=== PATIENT | female | born 1985 | race Caucasian/White ===

== ENCOUNTER 2017-11-24 09:37 | Emergency (ER) | payer MEDICAID ==
[~2017-11-24] VITALS: Ht 160 cm; Wt 124.7 kg
[~2017-11-24 09:37] MED LIST: LISI10TA6; TOPI25TA32
[2017-11-24 09:42] VITALS: BP 196/78
[2017-11-24] MEDS ORDERED: TETANUS-DIPTH-ACEL PERTUSSIS 0.5ML SYRG IM ONE (10:45)
== END 2017-11-24 10:53 | disposition home or self-care (01) ==
LOC: ER 09:37
DX: S91.332A Puncture wound without foreign body, left foot, initial encounter (principal); W22.8XXA Striking against or struck by other objects, initial encounter; Y93.89 Activity, other specified; Y99.8 Other external cause status; Y92.89 Other specified places as the place of occurrence of the external cause
CPT/HCPCS: 90471; 90715

== ENCOUNTER 2020-10-20 15:31 | Emergency (ER) | payer MEDICAID ==
[~2020-10-20] VITALS: Ht 162.6 cm; Wt 117.9 kg
[~2020-10-20 15:31] MED LIST changes: +LISI-716; -LISI10TA6; -TOPI25TA32; +TOPI25TA43
[2020-10-20 15:32] VITALS: BP 115/81
== END 2020-10-20 17:29 | disposition left against medical advice (07) ==
LOC: ER 15:31
DX: S80.862A Insect bite (nonvenomous), left lower leg, initial encounter (principal); Z53.21 Procedure and treatment not carried out due to patient leaving prior to being seen by health care provider; W57.XXXA Bitten or stung by nonvenomous insect and other nonvenomous arthropods, initial encounter; Y93.89 Activity, other specified; Y92.89 Other specified places as the place of occurrence of the external cause; Y99.8 Other external cause status

== ENCOUNTER 2024-10-21 19:11 | Inpatient (IN) | payer MEDICAID ==
[~2024-10-21] VITALS: Ht 162.6 cm; Wt 120.0 kg
[~2024-10-21 19:11] MED LIST changes: -LISI-716; +LISI10TA34
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
[2024-10-21 19:51] LABS: Hemoglobin 19.9 g/dL (12.2-16.2); Mean Corpuscular Hemoglobin 33.4 pg (28.0-32.0); Mean Corpuscular Volume 94.2 fL (80.0-100.0); Nucleated Red Blood Cells % 0.2 %
[2024-10-21 19:52] LABS: Hematocrit 56.2 % (36.0-46.0)
[2024-10-21 20:08] LABS: Albumin 4.1 g/dL (3.2-4.8); Alkaline Phosphatase 102 U/L (46-116); Anion Gap 6 (5-15); BUN/Creatinine Ratio 15.8 (10.0-20.0); Blood Urea Nitrogen 12 mg/dL (9-23); Calcium 9.0 mg/dL (8.7-10.4); Carbon Dioxide 28 mmol/L (20-31); Chloride 99 mmol/L (98-107); Lipase 30 U/L (12-53); Potassium 3.9 mmol/L (3.5-5.1); Total Protein 7.3 g/dL (5.7-8.2)
[2024-10-21 20:09] LABS: Alanine Aminotransferase 69 U/L (7-40); Bilirubin, Total 0.8 mg/dL (0.2-1.0); Glucose 123 mg/dL (74-106); Sodium 133 mmol/L (136-145)
[2024-10-21] MEDS: SODIUM CHLORIDE 0.9% 2,000 ML IV ONE (20:10)
[2024-10-21] MEDS: hydrALAZINE HCL 20 MG/ML VL IV ONE (20:10)
[2024-10-21] MEDS: LORazepam 2MG/ML-1ML VIAL IV ONE (20:11)
[2024-10-21] MEDS: ONDANSETRON HCL 4 MG/2 ML VIAL IV ONE (20:12)
[2024-10-21] MEDS: MORPHINE SULFATE 4 MG/ML SYR/VIAL IV ONE (20:13)
--- NOTE | 2024-10-21 21:27 | DVH ---
Exam: CT CT AB PEL WO CON-NO ORAL OR IV History: epig and R sided abd pain,n/v/d Comparison Study: None Technique: Multidetector spiral CT of the abdomen was performed from lung bases to pubic symphysis. Imaging was performed without IV contrast. Axial, coronal and sagittal multiplanar reformats were ob tained from the axial data set by the technologist. Radiation Dose : 1. Abdomen/Pelvis: CTDIvol 28 mGy, DLP 1504 mGy*cm. Findings: Evaluation of solid organs is limited due to lack of intravenous contrast use. Lung Bases: No acute or significant lung base finding. Normal heart size. No pleural or pericardial effusion. Liver: Hepatomegaly measuring up to 23 cm. Diffuse steatosis Gallbladder and Biliary Tree: Unremarkable Spleen: Unremarkable Pancreas: The pancreas is grossly normal in appearance. Adrenal Glands: Unremarkable Kidneys: Kidneys are grossly normal without calculi or hydronephrosis. Bladder: Grossly unremarkable for degree of distention. Bowel: The stomach is grossly normal in appearance. Small bowel and colon are normal in caliber and d istribution. The appendix is not visualized; however, no secondary findings of acute appendicitis id entified. Ascites: Absent Lymphadenopathy: No mesenteric, retroperitoneal or periportal lymphadenopathy. Abdominal Wall and Mesentery: Mild diastasis recti is seen in the lower midline abdomen Vasculature: The visualized abdominal aorta is normal in size and caliber. Evaluation of abdominal a nd pelvic vessels is limited due to lack of intravenous contrast. Pelvic Organs: Unremarkable Musculoskeletal: No aggressive focal bony lesions, acute fractures or dislocation. IMPRESSION: 1. No acute abdominal or pelvic findings. 2. Hepatomegaly with steatosis Radiation optimization: All CT scans at this facility use at least one of these dose optimization bernie hniques: automated exposure control mA and/or kV adjustment per patient size (includes targeted exam s where dose is matched to clinical indication) or iterative reconstruction.
[2024-10-21] MEDS: LABETALOL HCL 20 MG/4 ML VL IV ONE (21:45)
[2024-10-21] MEDS ORDERED: ACETAMINOPHEN 325 MG TAB PO PRN (23:30)
[2024-10-22] VITALS (9 sets, daily range): BP systolic 129–166; BP diastolic 57–110; PULSE 85–108; RESP 14–21; TEMP 97.7–98.6; O2SAT 90–95
--- NOTE | 2024-10-22 00:12 | DVHHP2 ---
History of Present Illness Reason for Visit: Abdominal pain History of Present Illness 39-year-old female presents for evaluation of abdominal pain. Patient reports a two day history of epigastric abdominal pain that radiates to her lower abdomen. Reports having episodes of nausea and vomiting. Also noted when I arrived [place] ent was hypertensive in the 180s. Patient is noncompliant with her medications. Past Medical History Thyroid, seizures, hypertension, depression Past Surgical History Laparoscopic ovarian tumor removed Family History Noncontributory Smoke: <1 pack per day ALCOHOL: heavy Drugs: None Review of Systems Review of Systems Review of systems are currently negative otherwise addressed in HPI. Allergies: Coded Allergies: NO KNOWN ALLERGIES (Unverified , 08/08/12) Medications Current Medications Medications Dose Ordered Sig/Trini Route Start Time Stop Time Status Last Admin Dose Admin Methimazole 5 mg DAILY PO 10/22/24 10:00 Metoprolol Succinate 25 mg DAILY PO 10/22/24 10:00 Benazepril HCl 40 mg DAILY PO 10/22/24 10:00 Divalproex Sodium 500 mg BID PO 10/22/24 10:00 Olanzapine 5 mg DAILY PO 10/22/24 10:00 Hydralazine HCl 10 mg Q6HP PRN IV 10/21/24 23:30 Acetaminophen/ Hydrocodone Bitart 1 tab Q4HP PRN PO 10/21/24 23:30 Ondansetron HCl 4 mg Q4HP PRN IV 10/21/24 23:30 Acetaminophen 650 mg Q6HP PRN PO 10/21/24 23:30 Morphine Sulfate 2 mg Q8HPRN PRN IV 10/21/24 23:30 Exam Vital Signs Vital Signs Date Time Temp Pulse Resp B/P (MAP) Pulse Ox O2 Delivery O2 Flow Rate FiO2 10/21/24 22:49 89 13 187/138 (154) 10/21/24 19:23 98.1 93 98.1 Exam Gen: 39-year-old female in mild distress, morbidly obese Skin: Warm, dry, normal color and texture, no rash. HEENT: Normocephalic atraumatic, mucous membranes moist and pink. Neck: Cervical and supraclavicular nodes normal without enlargement, trachea is midline, thyroid gland is normal without masses. Pulmonary: Clear to auscultation and percussion bilaterally. Cardiac: Regular rate and rhythm. No murmur Abdomen: Soft, nontender, nondistended, bowel sounds present all 4 quadrants, no guarding, no rigidity, no organomegaly. Extremities: No cyanosis, clubbing, no edema Neuro: Cranial nerves II through XII grossly intact, normal affect and speech, no focal motor deficits. Labs/Xrays ORDERING PHYSICIAN: XOCHITL BARRY MD PROCEDURE(s): ABPL - CT AB PEL WO CON-NO ORAL OR IV REASON: epig and R sided abd pain,n/v/d ORDER NUMBER(s): [id number], ACCESSION NUMBER(s): [id number] Exam: CT CT AB PEL WO CON-NO ORAL OR IV History: epig and R sided abd pain,n/v/d Comparison Study: None Technique: Multidetector spiral CT of the abdomen was performed from lung bases to pubic symphysis. Imaging was performed without IV contrast. Axial, coronal and sagittal multiplanar reformats were obtained from the axial data set by the technologist. Radiation Dose : 1. Abdomen/Pelvis: CTDIvol 28 mGy, DLP 1504 mGy*cm. Findings: Evaluation of solid organs is limited due to lack of intravenous contrast use. Lung Bases: No acute or significant lung base finding. Normal heart size. No pleural or pericardial effusion. Liver: Hepatomegaly measuring up to 23 cm. Diffuse steatosis Gallbladder and Biliary Tree: Unremarkable Spleen: Unremarkable Pancreas: The pancreas is grossly normal in appearance. Adrenal Glands: Unremarkable Kidneys: Kidneys are grossly normal without calculi or hydronephrosis. Bladder: Grossly unremarkable for degree of distention. Bowel: The stomach is grossly normal in appearance. Small bowel and colon are normal in caliber and distribution. The appendix is not visualized; however, no secondary findings of acute appendicitis identified. Ascites: Absent Lymphadenopathy: No mesenteric, retroperitoneal or periportal lymphadenopathy. Abdominal Wall and Mesentery: Mild diastasis recti is seen in the lower midline abdomen Vasculature: The visualized abdominal aorta is normal in size and caliber. Evaluation of abdominal and pelvic vessels is limited due to lack of intravenous contrast. Pelvic Organs: Unremarkable Musculoskeletal: No aggressive focal bony lesions, acute fractures or dislocation. IMPRESSION: 1. No acute abdominal or pelvic findings. 2. Hepatomegaly with steatosis Radiation optimization: All CT scans at this facility use at least one of these dose optimization techniques: automated exposure control mA and/or kV adjustment per patient size (includes targeted exams where dose is matched to clinical indication) or iterative reconstruction. Labs Test 10/21/24 20:22 10/21/24 19:30 Range/Units Troponin I High Sensitivity 30 </=34 ng/L White Blood Count 9.7 4.4-10.8 10^3/uL Red Blood Count 5.97 H 4.0-5.20 10^6/uL Hemoglobin 19.9 H 12.2-16.2 g/dL Hematocrit 56.2 H 36.0-46.0 % Mean Corpuscular Volume 94.2 80.0-100.0 fL Mean Corpuscular Hemoglobin 33.4 H 28.0-32.0 pg Mean Corpuscular Hemoglobin Concent 35.5 32.0-36.0 g/dL Red Cell Distribution Width 14.5 H 11.8-14.3 % Platelet Count 213 140-450 10^3/uL Mean Platelet Volume 9.3 6.9-10.8 fL Neutrophils (%) (Auto) 74.2 37.0-80.0 % Lymphocytes (%) (Auto) 15.5 10.0-50.0 % Monocytes (%) (Auto) 9.6 0.0-12.0 % Eosinophils (%) (Auto) 0.3 0.0-7.0 % Basophils (%) (Auto) 0.4 0.0-2.0 % Neutrophils # (Auto) 7.2 1.6-8.6 10 ^3/uL Lymphocytes # (Auto) 1.5 0.4-5.4 10 ^3/uL Monocytes # (Auto) 0.9 0-1.3 10 ^3/uL Eosinophils # (Auto) 0 0-0.8 10 ^3/uL Basophils # (Auto) 0 0-0.2 10 ^3/uL Nucleated Red Blood Cells 0.2 % Sodium Level 133 L 136-145 mmol/L Potassium Level 3.9 3.5-5.1 mmol/L Chloride Level 99 98-107 mmol/L Carbon Dioxide Level 28 20-31 mmol/L Anion Gap 6 5-15 Blood Urea Nitrogen 12 9-23 mg/dL Creatinine 0.76 0.550-1.02 mg/dL Glomerular Filtration Rate Calc 102 >90 mL/min BUN/Creatinine Ratio 15.8 10.0-20.0 Serum Glucose 123 H 74-106 mg/dL Lactic Acid Level 1.0 0.4-2.0 mmol/L Calcium Level 9.0 8.7-10.4 mg/dL Total Bilirubin 0.8 0.2-1.0 mg/dL Aspartate Amino Transferase (AST) 98 H 13-40 U/L Alanine Aminotransferase (ALT) 69 H 7-40 U/L Alkaline Phosphatase 102 46-116 U/L Total Protein 7.3 5.7-8.2 g/dL Albumin 4.1 3.2-4.8 g/dL Lipase 30 12-53 U/L Thyroid Stimulating Hormone (TSH) < 0.01 L 0.55-4.78 uIU/mL SEPSIS Sepsis Screen Date sepsis recognized/suspect: Oct 21, 2024 Time Sepsis recognized/suspect: 1919 Recent Procedure: No On Antibiotic Therapy: No Respiratory Rate >20: No Heart Rate >90: Yes Temp<36 C (96.8 F) or >38.3 C: No SBP <90 or MAP <65 mmHG: No New Acute Mental Status Change: No Is the patient on CPAP, BIPAP,: No Physician Orders Troponin-I Hs (10/22/24 00:00) Troponin-I Hs (10/22/24 03:00) Troponin-I Hs (10/22/24 06:00) Urinalysis (10/21/24 19:16) Ct Ab Pel Wo Con-No Oral Or Iv (10/21/24 19:16) Blood Culture (10/21/24 19:16) Test, Urine (10/21/24 19:16) Electrocardigram (10/21/24 19:34) Stool Bacterial Culture (10/21/24 19:39) Ova & Parasite Exam (10/21/24 19:39) Drug Screen (10/21/24 23:02) Methimazole Tab (Tapazole) (10/22/24 10:00) Metoprolol Xl Succinate (Toprol Xl) (10/22/24 10:00) Benazepril Hcl Tablet (Lotensin Tablet) (10/22/24 10:00) Divalproex Dr Tablet (Depakote "Dr" Tabl (10/22/24 10:00) Olanzapine Tablet (Zyprexa Tablet) (10/22/24 10:00) Hydralazine Injection (Apresoline Inject (10/21/24 23:30) Admit (10/21/24 23:18) Hydrocodone-Acet 5/325mg Tab (Otis /32 (10/21/24 23:30) Ondansetron Hcl (Zofran) (10/21/24 23:30) Condition: Stable (10/21/24 23:18) Acetaminophen Tablet (Tylenol Tablet) (10/21/24 23:30) Clear Liq Diet (10/22/24 Breakfast) Bedrest With Bathroom Privileg (10/21/24 23:18) Morphine Sulfate Injection (10/21/24 23:30) Basic Metabolic Panel (10/22/24 04:00) Methimazole Tab (Tapazole) (10/22/24 00:15) Thyroid Panel (10/22/24 00:07) Methimazole Tab (Tapazole) (10/22/24 00:15) Vital Signs Date Time Temp Pulse Resp B/P (MAP) Pulse Ox O2 Delivery O2 Flow Rate FiO2 10/21/24 22:49 89 13 187/138 (154) 10/21/24 20:13 96 17 196/118 10/21/24 20:10 196/118 10/21/24 19:25 81 10/21/24 19:23 98.1 96 16 196/118 (144) 93 98.1 Laboratory Tests Test 10/21/24 19:30 Lactic Acid Level 1.0 mmol/L (0.4-2.0) White Blood Count 9.7 10^3/uL (4.4-10.8) Medications Medications Dose Ordered Sig/Trini Route Start Time Stop Time Status Last Admin Dose Admin Chlordiazepoxide HCl 50 mg ONCE ONCE PO 10/21/24 19:30 10/21/24 19:31 DC 10/21/24 20:28 50 MG Hydralazine HCl 10 mg ONCE ONCE IV 10/21/24 19:30 10/21/24 19:31 DC 10/21/24 20:10 10 MG Lorazepam 1 mg ONCE ONCE IV 10/21/24 19:30 10/21/24 19:31 DC 10/21/24 20:11 1 MG Morphine Sulfate 4 mg ONCE ONCE IV 10/21/24 19:30 10/21/24 19:31 DC 10/21/24 20:13 4 MG Ondansetron HCl 4 mg ONCE ONCE IV 10/21/24 19:30 10/21/24 19:31 DC 10/21/24 20:12 4 MG Sodium Chloride 2,000 ml @ 1,000 mls/hr Q2H ONCE IV 10/21/24 19:30 10/21/24 21:29 DC 10/21/24 20:10 1,000 MLS/HR Assessment/Plan Assessment/Plan Assessment Hypertensive crisis Intractable abdominal pain Chronic pain syndrome Hyperthyroid Noncompliant Plan Admit the patient to Med surge to the hospitalist Thyroid panel pending As needed antihypertensives Resume home medications Clear liquid diet Pain management Continue treatment per orders Plan discussed with: Patient My Orders Orders - ASHUTOSH MARIE Procedure Category Date Status Time Drug Screen LAB 10/21/24 Logged 23:02 Methimazole Tab PHA 10/22/24 In Process (Tapazole) 10:00 Metoprolol Xl PHA 10/22/24 In Process Succinate (Toprol Xl) 10:00 Benazepril Hcl Tablet PHA 10/22/24 In Process (Lotensin Tablet) 10:[address] Tablet PHA 10/22/24 In Process (Depakote "Dr" Tabl 10:00 Olanzapine Tablet PHA 10/22/24 In Process (Zyprexa Tablet) 10:00 Hydralazine Injection PHA 10/21/24 In Process (Apresoline Inject 23:30 Admit ADMIT 10/21/24 Transmitted 23:18 Hydrocodone-Acet PHA 10/21/24 In Process 5/325mg Tab (Otis 23:30 Ondansetron Hcl PHA 10/21/24 In Process (Zofran) 23:30 Condition: Stable SOCO 10/21/24 In Process 23:18 Acetaminophen Tablet PHA 10/21/24 In Process (Tylenol Tablet) 23:30 Clear Liq Diet DIET 10/22/24 Transmitted Breakfast Bedrest With Bathroom SOCO 10/21/24 In Process Privileg 23:18 Morphine Sulfate PHA 10/21/24 In Process Injection 23:30 Basic Metabolic Panel LAB 10/22/24 Logged 04:00 Methimazole Tab PHA 10/22/24 Verified (Tapazole) 00:15 Thyroid Panel LAB 10/22/24 Verified 00:07 Methimazole Tab PHA 10/22/24 Verified (Tapazole) 00:15 Date of Service: Oct 21, 2024 Billing Provider: ASHUTOSH MARIE Common Visit Codes: [id number] INP/OBS CARE (HIGH) ASHUTOSH MARIE Oct 22, 2024 00:12
[2024-10-22] MEDS: methIMAzole 5 MG TAB PO SCH (01:01)
[2024-10-22] MEDS: methIMAzole 5 MG TAB PO ONE (01:02)
[2024-10-22 03:18] LABS: Chloride 100 mmol/L (98-107); Potassium 3.5 mmol/L (3.5-5.1)
[2024-10-22 03:19] LABS: Anion Gap 7 (5-15); Calcium 8.9 mg/dL (8.7-10.4); Carbon Dioxide 26 mmol/L (20-31)
[2024-10-22 03:21] LABS: Sodium 133 mmol/L (136-145)
[2024-10-22 03:24] LABS: BUN/Creatinine Ratio 17.1 (10.0-20.0); Blood Urea Nitrogen 13 mg/dL (9-23)
[2024-10-22 03:28] LABS: Glucose 126 mg/dL (74-106)
[2024-10-22] MEDS: hydrALAZINE HCL 20 MG/ML VL IV PRN (05:11)
[2024-10-22] MEDS: METOPROLOL SUCCINATE XL 50 MG TAB PO SCH (09:11)
[2024-10-22] MEDS: OLANZapine 5 MG TAB PO SCH (09:11)
[2024-10-22] MEDS: BENAZEPRIL HCL 10 MG TAB PO SCH (09:12)
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
--- NOTE | 2024-10-22 09:37 | ECG ---
[facility] Test Date: 2024-10-21 Test Time: 19:25:05 Pat Name: RICHARD KENNEDY Department: ED Room: [facility] Gender: F Sh[employer] Supervisor: NARGIS : 1985 Requested By: XOCHITL SOTO Order Number: [id number] Reading MD: Ras Najera Measurements Intervals [place] Rate: 81 P: 55 [place]: 131 QRS: 142 QRSD: 79 T: 56 QT: 402 QTc: 467 Interpretive Statements Sinus rhythm Consider right atrial enlargement Right axis deviation Low voltage, precordial leads Electronically Signed On 10-29-2024 15:26:11 PDT by Ras Najera Please click the below link to view image of tracing.
[2024-10-22] MEDS ORDERED: methIMAzole 5 MG TAB PO SCH (10:00)
[2024-10-22 10:02] LABS: Albumin 3.9 g/dL (3.2-4.8); Alkaline Phosphatase 92.0 U/L (46-116); Bilirubin, Direct 0.2 mg/dL (<0.3); Bilirubin, Total 0.6 mg/dL (0.2-1.0); Total Protein 7.0 g/dL (5.7-8.2)
[2024-10-22 10:03] LABS: Alanine Aminotransferase 68.0 U/L (7-40)
[2024-10-22] MEDS ORDERED: hydrALAZINE HCL 20 MG/ML VL IV PRN (16:00)
[2024-10-22] MEDS: SUCRALFATE 1 GM TAB PO SCH (17:46)
[2024-10-22] MEDS: PANTOPRAZOLE 40 MG/10 ML VIAL INJ IV SCH (17:46)
[2024-10-22] MEDS: MORPHINE SULFATE INJ 2 MG/ml SYRG IV PRN (17:51)
[2024-10-22] MEDS: ONDANSETRON HCL 4 MG/2 ML VIAL IV PRN (17:52)
[2024-10-22] MEDS: cefTRIAXone 1GM/50ML D5W 50 ML IV SCH (18:06)
[2024-10-22] MEDS: CARVEDILOL 3.125 MG TAB PO SCH (22:26)
[2024-10-23 01:00] VITALS: BP 118/66; PULSE 109; RESP 20; TEMP 98.6; O2SAT 94
[2024-10-23 02:08] LABS: Amphetamine Screen, Urine Pos (NEGATIVE); Benzodiazephine Screen, Urine Pos (NEGATIVE); Cannabinoid Screen, Urine Neg (NEGATIVE); Cocaine Screen, Urine Neg (NEGATIVE); Opiate Scree,Urine Neg (NEGATIVE); Phencyclidine Screen, Urine Neg (NEGATIVE)
[2024-10-23 02:09] LABS: Barbiturate Scree,Urine Neg (NEGATIVE)
[2024-10-23 05:00] VITALS: BP 116/76; PULSE 75; RESP 20; TEMP 97.9; O2SAT 95
[2024-10-23 06:15] LABS: Hemoglobin 17.9 g/dL (12.2-16.2); Mean Corpuscular Hemoglobin 33.0 pg (28.0-32.0)
[2024-10-23 06:18] LABS: Hematocrit 52.3 % (36.0-46.0); Mean Corpuscular Volume 96.3 fL (80.0-100.0); Nucleated Red Blood Cells % 0.1 %
[2024-10-23 06:23] LABS: Albumin 3.4 g/dL (3.2-4.8); Alkaline Phosphatase 74 U/L (46-116); Anion Gap 7 (5-15); BUN/Creatinine Ratio 16.9 (10.0-20.0); Bilirubin, Total 0.7 mg/dL (0.2-1.0); Blood Urea Nitrogen 14 mg/dL (9-23); Calcium 9.4 mg/dL (8.7-10.4); Carbon Dioxide 25 mmol/L (20-31); Chloride 104 mmol/L (98-107); Glucose 82 mg/dL (74-106); Potassium 3.8 mmol/L (3.5-5.1); Sodium 136 mmol/L (136-145); Total Protein 6.0 g/dL (5.7-8.2)
[2024-10-23 06:28] LABS: Alanine Aminotransferase 47 U/L (7-40)
[2024-10-23 08:00] VITALS: PULSE 72; RESP 18; O2SAT 96
[2024-10-23 08:07] LABS: Free Thyroxine Index 4.7 (1.2-4.9)
[2024-10-23] MEDS: SUCRALFATE 1 GM TAB PO SCH (08:53)
[2024-10-23 09:00] VITALS: BP 118/74; PULSE 72; RESP 17; TEMP 98.2; O2SAT 96
[2024-10-23] MEDS: HYDROcodone-ACET 5/325MG TAB PO PRN (09:05)
[2024-10-23 12:40] VITALS: BP 91/48; PULSE 67; RESP 17; TEMP 98.2; O2SAT 91
[2024-10-23] MEDS ORDERED: AUG875T PO (15:42)
[2024-10-23] MEDS ORDERED: METH5TAB98 PO (15:42)
[2024-10-23] MEDS ORDERED: OLAN1TAB19 PO (15:42)
[2024-10-23] MEDS ORDERED: CARV-216 PO (15:42)
[2024-10-23] MEDS ORDERED: LISI40TA16 PO (15:42)
[2024-10-23] MEDS ORDERED: DIVA1TAB59 PO (15:42)
[2024-10-23 15:50] VITALS: BP 133/82
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
== END 2024-10-23 15:55 | disposition home or self-care (01) | DRG 199 ==
LOC: ER 19:11 → EDUNIT# 19:11 → EDBD 19:11 → OVERFLOW 23:18 → WEST WING 10-22 17:24
PROVIDERS: ADMIT Student in an Organized Health Care Education/Training Program; ATTEND Student in an Organized Health Care Education/Training Program
DX: I16.0 Hypertensive urgency (principal); A09 Infectious gastroenteritis and colitis, unspecified; E05.90 Thyrotoxicosis, unspecified without thyrotoxic crisis or storm; F32.A Depression, unspecified; F17.210 Nicotine dependence, cigarettes, uncomplicated; I10 Essential (primary) hypertension; G89.4 Chronic pain syndrome; F41.9 Anxiety disorder, unspecified; R07.89 Other chest pain; F10.129 Alcohol abuse with intoxication, unspecified; F19.10 Other psychoactive substance abuse, uncomplicated; K27.9 Peptic ulcer, site unspecified, unspecified as acute or chronic, without hemorrhage or perforation; Z91.148 Patient's other noncompliance with medication regimen for other reason; Y90.9 Presence of alcohol in blood, level not specified
CPT/HCPCS: 36415; 74176; 80048; 80053; 80076; 80307; 80320; 81025; 83605; 83690; 84443; 84484; 85025; 87040; 93005; 96361; 96374; 96375; G0378; J2405; J2470; J3490